=== PATIENT | male | born 1960 | race Caucasian/White ===

== ENCOUNTER 2019-04-22 08:30 | Outpatient (RCR) | payer OTHER, SELFPAY ==
--- NOTE | 2019-03-10 19:39 | HP.PTEVAL ---
Patient's Visit Information RITA OSBORNE is a 58 year old M referred to Physical Therapy by Alphonso Albright MD with a diagnosis of RIGHT SHOULDER IMINGEMENT. Date of Evaluation: 03/10/19 Physical Therapist: Magan Couch PT, Cert MDT, OCS - Visit Plan Frequency: 2x /Week Duration: 4 Weeks Plan: MODALTIES FOR PAIN RELEIVE,CERVIACL/POSTURAL EX'S,MANULA THERAPY -TRACTION C-SPINE - Subjective Findings: This 58 y/o male presnets to physical therapy with right shoulder pain for 2 years. Patient seen PA at [employer].Location [place] to bicep. Recommended PT also recommended to assess cervical spine. Patient aggravtes throwing ,lifting to side ,slouched position or sitting,driving causing parathesia. Symptoms affects sleeping,with parathesia/tingling. Also golfing pain with arm across body. Patient has limited ablity reaching behind back. Symptoms affects job demands and ADL'S . Patient symptoms affect QOL . SOCAIL: single. 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 PALAPTION: tender 1ST RIB ,SCALANES. NEURO: c/o parathesia/tingling ,bicep shhoulder,reflexes 2/3 C5-6-7,mytomes intact. MMT: RTC/DELTOID 5/5,Biceps/triceps/wrist 5/5. AROM: 165 degrees flexion /abduction ,ER 90 ,80 DEGREES IR ,no pain with overpressure. CERVICAL ROM: flexion min loss,extension min/mod loss,lateral flexion min/mod loss,rotation min/mod loss - Special Tests C/S Radiculapathy - Left Upper limb tension test: Negative C/S Radiculapathy - Right Upper limb tension test: Positive C/S Radiculapathy - Left Spurlings: Negative C/S Radiculapathy - Right Spurlings: Negative C/S Radiculapathy - Left Cervical distraction: Negative C/S Radiculapathy - Right Cervical distraction: Negative C/S Radiculapathy - Left Relief test: Negative C/S Radiculapathy - Right Relief test: Negative C/S Radiculapathy - Valsalva: Negative Sharp Sandra: Negative Vertebral Artery Test: Negative Alar Ligament Test: Negative Cervical Sitting: Protrusion - Mechanical Response: No effect Cervical Sitting: Protrusion - Symptoms During Testing: No effect Cervical Sitting: Protrusion - Symptoms After Testing: No effect Cervical Sitting: Retraction - Mechanical Response: No effect Cervical Sitting: Retraction - Symptoms During Testing: Increases Cervical Sitting: Retraction - Symptoms After Testing: Worse R Shoulder External Rotation Lag Test - RC Tear: Negative R Shoulder Supine Impingement Test - RC Tear: Negative R Shoulder Lift Off Test - Subscapular Tear: Negative R Shoulder Drop Sign - IS Test: Negative R Shoulder Empty Can - SS: Negative R Shoulder Belly Press - SupScap: Negative R Shoulder Neer - Impingement: Negative R Shoulder Pichardo You - Impingement: Negative R Shoulder Biceps Load Test - Labrum: Negative R Shoulder Yeargasons - SLAP: Negative - Goals Goal 1:: Patient to be Independant with HEP Goal Time Frame: 4-6 Weeks Goal 2:: Patient to improve posture for ADL'S. Goal Time Frame: 4-6 Weeks Goal 3:: Patient to decrease right UT/CERVICAL PAIN with parathesia by 50 % or grester to improve function. Goal Time Frame: 4-6 Weeks Goal 4:: Patient to improve ability to perform ADL'S and houseworks /job demands without limiations Goal Time Frame: 4-6 Weeks Goal 5:: Patient to improve quick dash by 5 points or greater to improve function and QOL. 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 Patient right shoulder appears to be cleared. Rehabilitation Potential: Good - Anticipated Interventions Patient/Client Instruction: Educate patient on: Condition, Plan of Care For the Purpose of:: To decrease pain, To decrease swelling/inflammation, To increase ROM, To improve muscle performance and motor function, To increase tolerance to activity/condition/position, To improve ability of physical actions for home/community/work/leisure, To improve health of tissue, To decrease soft tissue restriction, To increase flexibility/ROM, To reduce risk of recurrence, To improve ability to perform tasks related to life management Therapeutic Exercise to Include: Strength training, Postural training, Flexibilty training, Active ROM For the Purpose of:: To decrease pain, To increase ROM, To improve nutrient delivery to tissue, To increase oxygenation perfusion, To improve health of tissue, To decrease soft tissue restriction, To improve ability to perform tasks related to life management Manual Therapy Techniques to Include: Mobilization Comment: traction For the Purpose of:: To decrease pain, To decrease swelling/inflammation, To increase ROM, To improve nutrient delivery to tissue, To increase oxygenation perfusion, To decrease soft tissue restriction, To increase flexibility/ROM TENS: Yes IF ES: Yes Cryotherapy (ice pack, ice massage): Yes Thermo therapy (hot pack): Yes Ultrasound (thermal/non thermal): Yes Intermittent cervical traction: Yes For the Purpose of:: To decrease pain, To increase ROM, To improve nutrient delivery to tissue, To increase oxygenation perfusion, To improve health of tissue, To decrease soft tissue restriction Thank you for the opportunity to evaluate your patient. For Medicare and Medicare HMO plans, please review the plan of care and approve it. It will need to be FAXED BACK to us at [phone] for Medicare purposes. For Medicare only, by signing this I certify the plan of care. Please let me know if there are questions or concerns regarding this plan of care. Physician Signature: Date:
--- NOTE | 2019-07-18 16:00 | HP.PT.NRP ---
HP - Discharge Summary (1) - Patient Information RITA OSBORNE was seen in my office for initial evaluation on 03/10/19. The following Plan of Care was established for this patient: Initial Frequency: 2x /Week Initial Duration: 4 Weeks - Anticipated Interventions Patient/Client Instruction: Educate patient on: Condition, Plan of Care For the Purpose of:: To decrease pain, To decrease swelling/inflammation, To increase ROM, To improve muscle performance and motor function, To increase tolerance to activity/condition/position, To improve ability of physical actions for home/community/work/leisure, To improve health of tissue, To decrease soft tissue restriction, To increase flexibility/ROM, To reduce risk of recurrence, To improve ability to perform tasks related to life management Therapeutic Exercise to Include: Strength training, Postural training, Flexibilty training, Active ROM For the Purpose of:: To decrease pain, To increase ROM, To improve nutrient delivery to tissue, To increase oxygenation perfusion, To improve health of tissue, To decrease soft tissue restriction, To improve ability to perform tasks related to life management Manual Therapy Techniques to Include: Mobilization Comment: traction For the Purpose of:: To decrease pain, To decrease swelling/inflammation, To increase ROM, To improve nutrient delivery to tissue, To increase oxygenation perfusion, To decrease soft tissue restriction, To increase flexibility/ROM TENS: Yes IF ES: Yes Cryotherapy (ice pack, ice massage): Yes Thermo therapy (hot pack): Yes Ultrasound (thermal/non thermal): Yes Intermittent cervical traction: Yes For the Purpose of:: To decrease pain, To increase ROM, To improve nutrient delivery to tissue, To increase oxygenation perfusion, To improve health of tissue, To decrease soft tissue restriction This patient was last seen in our office 04/22/19. Pertinent comments regarding their Physical therapy will appear below: Patient was seen for PT for impingement for shoulder also to Evaluate and tx cervical spine . Patient continue to have symptoms in shoulder which where intermiitant. Thus ,patient to be d/c to MD for further diagnostics. At this point I will be discontinuing this patient from physical therapy. I would be happy to see this patient again in the future if found appropriate by the physician. Thank you! Magan Couch, PT, Cert MDT, OCS
== END 2019-04-22 19:00 | disposition home or self-care (01) ==
LOC: PT 08:30
PROVIDERS: Family Provider Family Medicine; PCP Family Medicine; Referring Provider Orthopaedic Surgery; Visit Provider Orthopaedic Surgery
DX: M75.41 Impingement syndrome of right shoulder (principal)
CPT/HCPCS: 97012; 97014; 97035; 97140; 97161; G0283

== ENCOUNTER → 2019-10-23 14:53 | Outpatient (CLI) | payer OTHER, SELFPAY ==
[2019-10-23 14:50] VITALS: BMI 27.2
--- NOTE | 2019-10-23 14:55 | RAD_ITS ---
STUDY: X-RAY - LEFT ELBOW REASON FOR EXAM: Male, 59 years old. Pain. TECHNIQUE: 3 view(s) of the elbow. COMPARISON: None. FINDINGS: Normal visualized humerus, radius and ulna. There is degenerative arthrosis of the radiocapitellar and ulnotrochlear articulations. There is no acute fracture, dislocation or destructive osseous pathology. The soft tissue structures are unremarkable. RAD/Elbow min 3 Views IMPRESSION: Mild arthrosis of the elbow without acute fracture or dislocation. Electronically Signed: Wil Kennedy DO at 22:37 EST Tel [phone], Service support ,
== END ==
PROVIDERS: Family Provider Family Medicine; PCP Family Medicine; Referring Provider Orthopaedic Surgery; Visit Provider Orthopaedic Surgery
DX: M25.522 Pain in left elbow (principal)
CPT/HCPCS: 73080

== ENCOUNTER 2019-12-30 08:00 | Outpatient (RCR) | payer OTHER, SELFPAY ==
[2019-10-23 14:50] VITALS: BMI 27.2
--- NOTE | 2019-10-31 07:45 | HP.OTEVAL_ITS ---
Patient's Visit Information RITA OSBORNE is a 59 year old M, referred to Occupational Therapy by Saranya Lee DO, with a diagnosis of L lateral epicondylitis. Date of Evaluation: 10/31/19 Occupational Therapist: Rima Ramos, OTR/L - Subjective Subjective: Rita 'Bi' noted elbow pain started about 3 months ago.He noted that he has been icing. No cortisone injection. He is right hand dominant but is extremely limited by pain in job and daily tasks for LUE. 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 Will monitor and further ulnar nerve glides to follow as needed. - Special Tests Lat Epiconylitis - as named: Dougherty- positive - Quick DASH-Disab of Arm,Shoulder& Hand Quick DASH Score: 55.0000 - Goals Goal:: Bi to increased L manager industrial by 25-30 lbs to promote regaining about 60% of R dominant hand and to help decrease pain to promote returning to PLOF by d/c. Goal:: Bi to be (I) to complete pain management techniques of L UE to promote regaining ability to return to PLOF by d/c. Goal:: Bi to be (I) to complete correct ergonomics and joint mechanics of LUE to promote strength and stability of L UE to decrease risk of further injury and management pain 4/5 trials 80% of the time by d/c. Goal:: Bi to be (I) to complete daily HEP to promote increased ROM, strength,and pain management of LUE to promote ability to complete ADL/IADLs including work related tasks 4/ 5 trials 80% of the time by d/c. - Rehabilitation General Assessment: Rita Valiente is s/p three months of increased lateral epicondylitis symptoms. He noted that symptoms started about 2-3 months ago and he has iced off and on without relief. 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 He exh ibits increased pain with all movements, especially resistive movements. Further skilled OT warranted to promote strength, stability, ergonomic, and his general ability to return to PLOF for all ADL/IADls. Rehabilitation Potential: Good - Anticipated Interventions Anticipated Interventions: A/AAROM/PROM, Strengthening, Edema Control, Desensitization, Wound Care, Modalities, Orthoses, Joint Protection/Energy Conservation, Ergonomic Education, Fine Motor Coord/Jose, ADL Training, Caregiver Training, Home Program - Visit Plan Frequency: 2x /Week Duration: 6 Weeks General Plan: Bi to complete OT to promote increased strength and stability of elbow, ergonomic and joint mechanics, and general ability to return to PLOF. TEXT: Thank you for the opportunity to evaluate your patient. For Medicare and Medicare HMO plans, please review the plan of care and approve it. It will need to be FAXED BACK to us at [phone] for Medicare purposes. Please let me know if there are questions or concerns regarding this plan of care. Physician Signature: Date:
--- NOTE | 2019-12-23 09:23 | HP.OTDCNRP_ITS ---
HP - Discharge Summary - Patient Information RITA OSBORNE was seen in my office for initial evaluation on 10/31/19. The following Plan of Care was established for this patient: Initial Frequency: 2x /Week Initial Duration: 6 Weeks Plan: continue POC. Will follow up in week -two weeks as he is to continue working ergonomics, HEP, and finish patches from Dr. Bourne - Anticipated Interventions Anticipated Interventions: A/AAROM/PROM, Strengthening, Edema Control, Desensitization, Wound Care, Modalities, Orthoses, Joint Protection/Energy Conservation, Ergonomic Education, Fine Motor Coord/Jose, ADL Training, Car egiver Training, Home Program This patient was last seen in our office 11/28/19. Pertinent comments regarding their Occupational therapy will appear below: Last seen in clinic 11/28/19. He was supposed to follow up back in outpatient in two weeks. OT called as did not see in clinic and no further appointments were schduled. No call back recieved and he will be d/c'd at this time. At this point I will be discontinuing this patient from occupational therapy. I would be happy to see this patient again in the future if found appropriate by the physician. Thank you! Rima Ramos, OTR/L
--- NOTE | 2019-12-26 14:23 | HP.OTCOM ---
OT Communication Note 12/26/[address] Saranya Lee, DO Chart was prematurely discharged as OT had called patient twice without callback and no further appointments scheduled. He has scheduled appointment for 12/30/19 post signing of recent discharge. Please disregard and further assessment to complete 12/30/19 in regards to plan of care. Sincerely, Rima Ramos, OTR/L Contact Information
--- NOTE | 2019-12-30 10:15 | HP.OTDCSUM_ITS ---
HP - OT D/C Summary It has been my pleasure to treat RITA OSBORNE under orders from Dr. Saranya Lee, , for the diagnosis of L lateral epicondylitis for a total of 7 visit(s). Please see the following information for a summary of their discharge status. - Overall Improvement % Improvement: 80 - Objective Objective/Function: Completed reassessment on this date of 12/30/19 and results: Strength: predictive maintenance specialist flexed R 96, L 84 lbs. predictive maintenance specialist ext R 91, L 55 lbs. lateral R 24, L 20 lbs. tripod R 20, L 18 lbs. pincer R 14, L 14 lbs. He has progressed significantly in predictive maintenance specialist strength since inital evaluation. He has increased considerably in strength since inital evaluation but continues to have pain in extended positions. - Goals Patient Goals: Regain Mobility, Regain Strength, Decrease Pain, Return to Work, Decrease Swelling/Stiffness, Improve Fine Motor Skills, Use Hand/Wrist/Arm Normally Again, Sleep Better, Increase ROM, Be More Independent in ADLS, Decrease Sensitivity, Resume Former Household Responsibilities (Cooking,Cleaning,Yard, etc.), Resume Hobbies Goal:: Bi to increased L predictive maintenance specialist by 25-30 lbs to promote regaining about 60% of R dominant hand and to help decrease pain to promote returning to PLOF by d/c. Goal:: Bi to be (I) to complete pain management techniques of L UE to promote regaining ability to return to PLOF by d/c. Goal:: Bi to be (I) to complete correct ergonomics and joint mechanics of LUE to promote strength and stability of L UE to decrease risk of further injury and management pain 4/5 trials 80% of the time by d/c. Goal:: Bi Goal:: Bi to be (I) to complete daily HEP to promote increased ROM, strength,and pain management of LUE to promote ability to complete ADL/IADLs including work related tasks 4/ 5 trials 80% of the time by d/c. - Plan Plan: Rita will be discharged today. If pain persists, he is to return to Dr. Lee for orthopedic follow-up. He has progressed considerably but continues to have discomfort with resistive movements. He exhibits knowledge to manage pain and discomfort with use of KT tape and HEP. He has been educated on further progression of HEP and the potential of starting gym based program at for continued strengthening to continue to decrease pain in L elbow. - D/C Information If there are questions or concerns regarding this patient's occupational therapy, please fell free to call me at [phone]. Thank you for the referral of this patient. Sincerely, Rima Ramos, OTR/L
== END 2019-12-30 19:00 | disposition home or self-care (01) ==
LOC: OT 08:00
PROVIDERS: Family Provider Family Medicine; PCP Family Medicine; Referring Provider Orthopaedic Surgery; Visit Provider Orthopaedic Surgery
DX: M77.12 Lateral epicondylitis, left elbow (principal)
CPT/HCPCS: 97110; 97140; 97166; 97168; 97530

== ENCOUNTER → 2023-09-12 | Outpatient (CLI) | payer OTHER, SELFPAY ==
--- NOTE | 2023-09-12 10:53 | MRI_ITS ---
STUDY: MR PELVIS WITH T WITHOUT CONTRAST REASON FOR EXAM: Male, 63 years old. perianal mass TECHNIQUE: Standardized fat and water weighted pulse sequences were obtained in all 3 orthogonal planes, pre-and post contrast administration. clariscan 17ml iv was administered for the contrast portion of the examination. COMPARISON: No relevant prior comparison study available FINDINGS: Mild circumferential bladder wall thickening. Normal visualized small intestine. Normal visualized colon. There is a somewhat linear tract seen in the right perianal region with heterogeneous internal contents seen on T2 weighted images and bright enhancement on postcontrast images. It is approximately 2.7 cm in length and 4 mm in thickness. There is benign prostatic hyperplasia. Heterogeneous decreased intensity of the peripheral gland. There is no pelvic fluid. There is no lymphadenopathy. Normal visualized pelvic arteries. Normal osseous structures. Normal abdominal wall. 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 No obvious infiltrating mass, however cannot rule out underlying squamous cell carcinoma obscured by the fistula. Mild circumferential bladder wall thickening could represent cystitis in the correct clinical setting. Benign prostatic hyperplasia. Heterogeneous decreased intensity of the peripheral gland of the prostate could represent prostatitis in the correct clinical setting. Electronically Signed: Vishal Pérez MD at 23:30 EDT ,
[2023-09-12 11:30] LABS: CREATININE FINGERSTICK 1.1 mg/dL (0.70-1.30); EGFR FINGERSTICK > 60.0000 mL/min (>60)
== END | disposition home or self-care (01) ==
PROVIDERS: PCP Family Medicine; Referring Provider Surgery; Visit Provider Surgery
DX: K62.89 Other specified diseases of anus and rectum (principal)
CPT/HCPCS: 72197; A9575